=== PATIENT | female | born 1990 | race African-American/Black ===

== ENCOUNTER → 2017-03-23 | Outpatient (CLI) | payer OTHER ==
--- NOTE | 2017-03-24 04:27 | REP ---
Clinical: Displaced IUD . Technique: Transabdominal pelvic ultrasound followed by transvaginal examination for better evaluation of the endometrium and adnexa. Findings: Bladder is unremarkable and measures 10.0 x 8.1 x 4.7 cm . Normal anteverted uterus measures 8.6 x 4.1 x 5.3 cm . The endometrial complex measures 2.7 mm thickness. No discrete uterine or endometrial abnormalities are appreciated. IUD is identified in satisfactory position. Bilateral ovaries are normal in appearance without evidence for torsion. Right ovary measures 3.3 x 2.1 x 3.2 cm. Left ovary measures 2.8 x 1.9 x 1.9 cm. No pelvic fluid or adnexal mass lesions. Impression: 1. Normal pelvic ultrasound. IUD in satisfactory position. Signed by Ru Garibay MD 03/24/2017 04:19 A
== END ==
LOC: M RAD 13:13
PROVIDERS: ATTEND Obstetrics & Gynecology
DX: Z30.431 Encounter for routine checking of intrauterine contraceptive device (principal)

== ENCOUNTER → 2017-09-03 | Outpatient (REF) | payer OTHER | LOC: M SFHCLUC 16:50 | PROVIDERS: ATTEND Physician Assistant | DX: N30.00 Acute cystitis without hematuria (principal) ==

== ENCOUNTER 2018-05-15 17:01 | Emergency (ER) | payer OTHER ==
[2018-05-15] MEDS: IBUPROFEN 600 MG TAB PO (18:59)
== END 2018-05-15 21:00 | disposition home or self-care (01) ==
LOC: M ED 17:01
DX: Z04.1 Encounter for examination and observation following transport accident (principal); S13.4XXA Sprain of ligaments of cervical spine, initial encounter; S23.3XXA Sprain of ligaments of thoracic spine, initial encounter; S33.5XXA Sprain of ligaments of lumbar spine, initial encounter; V43.52XA Car driver injured in collision with other type car in traffic accident, initial encounter; Y92.410 Unspecified street and highway as the place of occurrence of the external cause; Z79.899 Other long term (current) drug therapy
CPT/HCPCS: 72072

== ENCOUNTER 2018-08-17 10:41 | Day surgery (SDC) | payer OTHER ==
[~2018-08-17 10:41] MED LIST: LIDOCAINE 1% MDV 20ML VIAL SQ
[2018-08-17 11:13] LABS: HEMATOCRIT 36.8 % (36.0-47.0); MEAN CORPUSCULAR HEMOGLOBIN 29.1 pg (27.0-33.0); MEAN CORPUSCULAR HGB CONC 32.6 g/dl (32.0-36.5); MEAN CORPUSCULAR VOLUME 89.3 fl (80.0-96.0); PLATELET COUNT, AUTOMATED 295 10^3/uL (150-450); RED BLOOD COUNT 4.12 10^6/uL (4.00-5.40); RED CELL DISTRIBUTION WIDTH 12.8 % (11.5-14.5); WHITE BLOOD COUNT 5.3 10^3/uL (4.0-10.0)
[2018-08-17] MEDS: LR 1,000 ML IV (11:20)
[2018-08-17 11:28] LABS: CONTROL LINE HCG INT CTR LINE PRESENT; HCG, SERUM QUALITATIVE NEGATIVE (NEGATIVE)
[2018-08-17] MEDS ORDERED: LIDOCAINE 2% INJ 100 MG/5 ML SDV (FOR ANES.) As Ordered (11:33)
[2018-08-17] MEDS ORDERED: PROPOFOL 200 MG/20 ML VIAL As Ordered ×2 (11:33)
[2018-08-17] MEDS ORDERED: ONDANSETRON 4MG/2ML VIAL (J2405) As Ordered (11:36)
[2018-08-17] MEDS ORDERED: fentaNYL 100 MCG/2 ML INJECTION (J3010) As Ordered (11:38)
[2018-08-17] MEDS ORDERED: MIDAZOLAM INJ 2 MG/2 ML VIAL (J2250) As Ordered (11:38)
[2018-08-17] MEDS ORDERED: KETOROLAC 60 MG/2 ML VIAL (J1885) As Ordered (12:18)
[2018-08-17] MEDS: LIDOCAINE W/EPINEPHRINE 1% 20ML VIAL As Ordered (12:21)
[2018-08-17] MEDS ORDERED: dexameTHASONE 4 MG/ML 1ML VIAL (J1100) As Ordered (13:05)
[2018-08-17] MEDS: IODINE STRONG SOLN 15 ML BTL As Ordered (13:08)
[2018-08-17] MEDS ORDERED: KETOROLAC 30 MG/ML VIAL (J1885) IV (14:00)
[2018-08-17] MEDS ORDERED: ONDANSETRON 4MG/2ML VIAL (J2405) IV (14:15)
[2018-08-17] MEDS ORDERED: LR 1,000 ML IV (14:15)
[2018-08-17] MEDS ORDERED: fentaNYL 100 MCG/2 ML INJECTION (J3010) IV (14:15)
== END 2018-08-17 14:15 | disposition home or self-care (01) ==
LOC: M SDC 10:41
DX: N87.1 Moderate cervical dysplasia (principal)
CPT/HCPCS: 57522

== ENCOUNTER 2019-08-22 08:37 | Day surgery (SDC) | payer OTHER ==
[~2019-08-22] VITALS: Ht 157.5 cm; Wt 58.9 kg
[~2019-08-22 08:37] MED LIST changes: +CYCL10TA PO; +FLUC150T PO; +IBUP-1022 PO; -LIDOCAINE 1% MDV 20ML VIAL SQ; +LIDOCAINE 2% INJ 100 MG/5 ML SDV (FOR ANES.) As Ordered ONE; +LR 1,000 ML IV ONE; +MIDAZOLAM INJ 2 MG/2 ML VIAL (J2250) As Ordered ONE; +MIRE1IUD IU; +ONDANSETRON 4MG/2ML VIAL (J2405) As Ordered ONE; +PROPOFOL 200 MG/20 ML VIAL As Ordered ONE; +[UNRECOGNIZED DRUG - OTHER]; +dexameTHASONE 4 MG/ML 1ML VIAL (J1100) As Ordered ONE; +fentaNYL 100 MCG/2 ML INJECTION (J3010) As Ordered ONE
[2019-08-22 09:20] LABS: HEMATOCRIT 39.4 % (36.0-47.0); HEMOGLOBIN 12.8 g/dl (12.0-15.5); MEAN CORPUSCULAR HEMOGLOBIN 29.2 pg (27.0-33.0); MEAN CORPUSCULAR HGB CONC 32.5 g/dl (32.0-36.5); PLATELET COUNT, AUTOMATED 326 10^3/uL (150-450); RED BLOOD COUNT 4.38 10^6/uL (4.00-5.40); WHITE BLOOD COUNT 4.3 10^3/uL (4.0-10.0)
[2019-08-22 09:36] LABS: HCG, SERUM QUALITATIVE NEGATIVE (NEGATIVE)
[2019-08-22] MEDS ORDERED: LIDOCAINE W/EPINEPHRINE 1% 20ML VIAL As Ordered ONE (11:12)
[2019-08-22] MEDS ORDERED: IODINE STRONG SOLN 15 ML BTL As Ordered ONE (11:12)
[2019-08-22] MEDS ORDERED: KETOROLAC 60 MG/2 ML VIAL (J1885) As Ordered ONE (11:37)
[2019-08-22] MEDS ORDERED: PHENYLephrine HCL 500 MCG/5 ML (100MCG/ML) SYRINGE (J2370) As Ordered ONE (11:38)
[2019-08-22] MEDS ORDERED: LR 1,000 ML IV SCH (12:45)
[2019-08-22] MEDS ORDERED: KETOROLAC 30 MG/ML VIAL (J1885) IV ONE (12:45)
[2019-08-22] MEDS ORDERED: oxyCODONE 5MG TAB PO PRN (12:45)
[2019-08-22] MEDS ORDERED: ONDANSETRON 4MG/2ML VIAL (J2405) IV PRN (12:45)
[2019-08-22] MEDS ORDERED: fentaNYL 100 MCG/2 ML INJECTION (J3010) IV PRN (12:45)
--- NOTE | 2019-08-22 12:52 | RO ---
DATE OF PROCEDURE: 08/22/2019 PREOPERATIVE DIAGNOSES: Persistent cervical dysplasia, status post prior loop electrosurgical excision procedure (LEEP) and shortened cervix. POSTOPERATIVE DIAGNOSES: Persistent cervical dysplasia, status post prior loop electrosurgical excision procedure (LEEP) and shortened cervix. PROCEDURE: Loop electrosurgical excision procedure. SURGEON: Sudhakar Dietrich DO ENGINEER STEAM: None. ANESTHESIA: Laryngeal mask airway (LMA) anesthesia. FLUIDS: 800 mL lactated Ringer (LR). URINE OUTPUT: 150 mL. ESTIMATED BLOOD LOSS (EBL): 1 mL. COMPLICATIONS: None. ANTIBIOTICS: None indicated. DETAILED PROCEDURE DESCRIPTION: The risks, benefits, indications, and alternatives of the procedure were reviewed with the patient, and informed consent was obtained. The patient was taken to the operating room, where anesthesia was obtained without difficulty. The patient was then placed in the lithotomy position using Clemente stirrups. An examination under anesthesia was then performed. It was significant for midline mobile 8-week size anteverted uterus. The patient was then prepped and draped in the usual sterile fashion. The bladder was drained using in-and-out catheter. A sterile Graves speculum was then placed into the vagina, and the cervix was visualized. As already known, the intrauterine device (IUD) strings were not visible protruding from the cervix. Lugol's solution was then copiously applied to the cervix, which highlighted a lesion in the middle of the endocervical canal. A paracervical block was then performed using approximately 10 mL of lidocaine with epinephrine. The LEEP device was then set to 60/60 blend and activated. The loop electrocautery wire was passed across the external cervical os in multiple passes. Adequate tissue was obtained and sent to pathology for review. The loop electrocautery wire was then activated again and passed deep into the endocervical canal in multiple passes, and an adequate tissue sample was then obtained and sent to pathology for review. Superficial electrocoagulation of the cervical stroma and endocervical canal was then performed with excellent hemostasis noted. Monsel solution was then applied to the cervix. All instruments were then removed from the patient's vagina. At the completion of the case, the sponge, instrument, and needle counts were correct times two. The patient tolerated the procedure well and was taken to the postanesthesia care unit (PACU) in stable condition. [facility]ITAL[facility]
[2019-08-22 14:00] VITALS: BP 110/53
== END 2019-08-22 14:15 | disposition home or self-care (01) ==
LOC: M SDC 08:37
PROVIDERS: ATTEND Obstetrics & Gynecology
DX: N87.9 Dysplasia of cervix uteri, unspecified (principal)
CPT/HCPCS: 36415; 57522; 84703; 85027; 88305; 88307; J1100; J1885; J2250; J2370; J2405; J3010